=== PATIENT | female | born 1955 | race Hispanic/Latino ===

== ENCOUNTER 2017-05-03 19:59 | Inpatient (IN) | payer MEDICAID, OTHER ==
[~2017-05-03] VITALS: Ht 144.8 cm; Wt 57.0 kg
[2017-05-03] MEDS ORDERED: IPRATROPIUM/ALBUTEROL SULFATE 3 ML SOLUTION IH ONE ×3 (20:05→20:38)
[2017-05-03] MEDS ORDERED: METHYLPREDNISOLONE SOD SUCC 125MG/2ML VIAL ONE (20:35)
[2017-05-03 21:11] LABS: BASOPHILS % (AUTO) 1.3 % (0.0-5.0); EOSINOPHILS % (AUTO) 5.8 % (0.0-8.0); HEMATOCRIT 44.6 % (36-48); LYMPHOCYTES % (AUTO) 15.5 % (21.0-51.0); MEAN CORPUSCULAR HEMOGLOBIN 30.2 pg (27.0-33.0); MEAN CORPUSCULAR HGB CONC 33.5 g/dL (32.0-36.0); MEAN CORPUSCULAR VOLUME 90.2 fL (79-99); MONOCYTES % (AUTO) 5.6 % (3.0-13.0); NEUTROPHILS % (AUTO) 71.8 % (40.0-77.0); PLATELET COUNT (AUTO) 393 K/uL (130-400); RED BLOOD CELL COUNT(AUTO) 4.94 MIL/uL (4.00-5.50); RED CELL DISTRIBUTION WIDTH 12.4 % (11.0-15.5)
[2017-05-03 21:24] LABS: CARBON DIOXIDE 26 mmol/L (21-32); CHLORIDE 102 mmol/L (101-111); CREATININE 0.5 mg/dL (0.5-1.5); GLOMERULAR FILTR. RATE CALC 134 mL/min (>60); GLUCOSE,RANDOM 121 mg/dL (70-105); POTASSIUM 3.7 mmol/L (3.5-5.1); SODIUM SERUM 140 mmol/L (136-145); UREA NITROGEN, BLOOD 7 mg/dL (7-18)
[2017-05-03 21:26] LABS: INR 0.94 (0.85-1.15); PARTIAL THROMBOPLASTIN TIME 25.8 SEC (26.3-35.5); PROTHROMBIN TIME 9.9 SEC (9.6-11.6)
[2017-05-03 21:37] LABS: ALANINE AMINOTRANSFERASE 33 U/L (12-78); ALBUMIN 4.2 g/dL (3.5-5.0); ASPARTATE AMINOTRANSFERASE 14 U/L (10-37); BILIRUBIN,TOTAL 0.4 mg/dL (0.2-1.0); CREATINE KINASE MB < 0.5 ng/mL (0.5-3.6); CREATINE KINASE, TOTAL 64 U/L (21-232); MYOGLOBIN 32 ng/mL (10-92); TOTAL PROTEIN, SERUM 7.9 g/dL (6.0-8.3)
[2017-05-03] MEDS ORDERED: ACETAMINOPHEN EXTRA STRENGTH 500 MG TABLET ONE (22:51)
[2017-05-03] MEDS ORDERED: CEFTRIAXONE SODIUM 1 GM ONE (23:49)
[2017-05-03] MEDS ORDERED: AZITHROMYCIN 250 MG TABLET PO ONE (23:50)
[2017-05-04] MEDS ORDERED: ONDANSETRON HCL 4 MG/2 ML VIAL IV PRN (03:15)
[2017-05-04] MEDS ORDERED: CEFTRIAXONE 1GM/D5W 50ML 50 ML IV SCH (03:15)
[2017-05-04] MEDS: AZITHROMYCIN 500MG+NS 250ML 250 ML IV SCH (03:15)
[2017-05-04] MEDS ORDERED: ACETAMINOPHEN-CODEINE 300/30MG TAB PO PRN (03:15)
[2017-05-04] MEDS ORDERED: HYDRALAZINE HCL 20 MG/ML VIAL IV PRN (03:15)
[2017-05-04] MEDS ORDERED: IPRATROPIUM/ALBUTEROL SULFATE 3 ML SOLUTION IH ONE ×2 (07:11→10:13)
[2017-05-04] MEDS: IPRATROPIUM/ALBUTEROL SULFATE 3 ML SOLUTION IH SCH ×5 (07:17→21:18)
[2017-05-04] MEDS ORDERED: METHYLPREDNISOLONE SOD SUCC 125MG/2ML VIAL ONE (08:36)
[2017-05-04] MEDS: METHYLPREDNISOLONE SOD SUCC 125MG/2ML VIAL IV SCH ×2 (09:00→20:12)
[2017-05-04] MEDS: ENOXAPARIN SODIUM 30 MG/0.3 ML SQ SCH (09:00)
[2017-05-04] MEDS: PANTOPRAZOLE SODIUM 40 MG TABLET.DR PO SCH (09:00)
[2017-05-04] MEDS ORDERED: ENOXAPARIN SODIUM 30 MG/0.3 ML SQ ONE (12:05)
[2017-05-04] MEDS ORDERED: PANTOPRAZOLE SODIUM 40 MG TABLET.DR PO ONE (12:06)
[2017-05-04 12:41] VITALS: BP 122/64
[2017-05-04] MEDS ORDERED: IPRA4AER IH (13:07)
[2017-05-04] MEDS ORDERED: ADV500 IH (13:07)
[2017-05-04] MEDS ORDERED: MONT10TA24 PO (13:07)
[2017-05-04 16:23] VITALS: BP 109/67
[2017-05-04 19:00] VITALS: BP 148/68
[2017-05-04] MEDS: CEFTRIAXONE SODIUM 1 GM IVP SCH (20:11)
[2017-05-04 23:00] VITALS: BP 134/71
[2017-05-05] MEDS: IPRATROPIUM/ALBUTEROL SULFATE 3 ML SOLUTION IH SCH ×6 (01:02→22:26)
[2017-05-05 03:00] VITALS: BP 107/58
[2017-05-05] MEDS: AZITHROMYCIN 500MG+NS 250ML 250 ML IV SCH (03:22)
[2017-05-05 05:51] LABS: BASOPHILS % (AUTO) 0.4 % (0.0-5.0); MEAN CORPUSCULAR HEMOGLOBIN 30.5 pg (27.0-33.0); MEAN CORPUSCULAR HGB CONC 33.8 g/dL (32.0-36.0); MEAN CORPUSCULAR VOLUME 90.2 fL (79-99); MONOCYTES % (AUTO) 5.4 % (3.0-13.0); NEUTROPHILS % (AUTO) 89.2 % (40.0-77.0); PLATELET COUNT (AUTO) 396 K/uL (130-400); RED BLOOD CELL COUNT(AUTO) 4.43 MIL/uL (4.00-5.50); RED CELL DISTRIBUTION WIDTH 12.5 % (11.0-15.5); WHITE BLOOD COUNT (AUTO) 18.4 K/uL (4.8-10.8)
[2017-05-05 06:08] LABS: CREATININE 0.8 mg/dL (0.5-1.5); POTASSIUM 4.3 mmol/L (3.5-5.1)
[2017-05-05 07:04] VITALS: BP 109/63
[2017-05-05] MEDS: METHYLPREDNISOLONE SOD SUCC 125MG/2ML VIAL IV SCH (09:41)
[2017-05-05] MEDS: PANTOPRAZOLE SODIUM 40 MG TABLET.DR PO SCH (09:41)
[2017-05-05] MEDS: ENOXAPARIN SODIUM 30 MG/0.3 ML SQ SCH (09:42)
[2017-05-05 11:00] VITALS: BP 129/66
[2017-05-05] MEDS: ACETAMINOPHEN 325 MG TAB PO PRN (14:20)
[2017-05-05 16:00] VITALS: BP 113/70
[2017-05-05] MEDS ORDERED: WATER FOR INJECTION,STERILE 20 ML VIAL ONE (19:50)
[2017-05-05 19:52] VITALS: BP 124/63
[2017-05-05] MEDS: CEFTRIAXONE SODIUM 1 GM IVP SCH (19:55)
[2017-05-06 00:11] VITALS: BP 109/49
[2017-05-06] MEDS: AZITHROMYCIN 500MG+NS 250ML 250 ML IV SCH (03:28)
[2017-05-06 04:27] VITALS: BP 102/65
[2017-05-06] MEDS: IPRATROPIUM/ALBUTEROL SULFATE 3 ML SOLUTION IH SCH (07:24)
[2017-05-06 07:46] VITALS: BP 126/81
[2017-05-06] MEDS: PANTOPRAZOLE SODIUM 40 MG TABLET.DR PO SCH (08:06)
[2017-05-06] MEDS: ENOXAPARIN SODIUM 30 MG/0.3 ML SQ SCH (08:07)
[2017-05-06] MEDS: ACETAMINOPHEN 325 MG TAB PO PRN ×2 (08:14→10:16)
[2017-05-06] MEDS ORDERED: PREDNISONE 20 MG TABLET PO SCH (09:00)
[2017-05-06 11:18] LABS: HEMATOCRIT 41.1 % (36-48); MEAN CORPUSCULAR HGB CONC 34.4 g/dL (32.0-36.0); MEAN CORPUSCULAR VOLUME 90.2 fL (79-99); PLATELET COUNT (AUTO) 383 K/uL (130-400); RED BLOOD CELL COUNT(AUTO) 4.55 MIL/uL (4.00-5.50); RED CELL DISTRIBUTION WIDTH 12.4 % (11.0-15.5)
[2017-05-06] MEDS ORDERED: PRED20B PO (11:32)
[2017-05-06 11:49] VITALS: BP 140/77
[2017-05-06 11:50] LABS: BAND NEUTROPHILS % (MANUAL) 1 % (0-2); LYMPHOCYTES % (MANUAL) 8 % (22-44); MONOCYTES % (MANUAL) 6 % (2-9); SEGMENTED NEUTROPHILS % 85 % (40-70)
[2017-05-06 11:51] LABS: MAN.DIFF COMMENT-IMPRESSION MANUAL DIFFERENTIAL; PLATELET MORPHOLOGY COMMENT ADEQUATE
== END 2017-05-06 13:15 | disposition home or self-care (01) | DRG 190 ==
LOC: EDH 19:59 → EDHIP 20:00 → 4BH 05-04 12:11
PROVIDERS: ADMIT Family Medicine; ATTEND Family Medicine
DX: J44.0 Chronic obstructive pulmonary disease with (acute) lower respiratory infection (principal); J18.1 Lobar pneumonia, unspecified organism; J44.1 Chronic obstructive pulmonary disease with (acute) exacerbation; R00.0 Tachycardia, unspecified; D72.829 Elevated white blood cell count, unspecified; Z91.013 Allergy to seafood
CPT/HCPCS: 36415; 71045; 80048; 80053; 82550; 82553; 83874; 84484; 85025; 85610; 85730; 87804; 93005; 94640; 99291; A4218; J0456; J0696; J1650; J2930

== ENCOUNTER 2017-05-19 13:59 | Inpatient (IN) | payer MEDICAID ==
[~2017-05-19] VITALS: Ht 144.8 cm; Wt 57.1 kg
[~2017-05-19 13:59] MED LIST: ADV500 IH; INSULIN HUMULIN R 100 UNIT/ML 3ML SQ ONE; IPRA4AER IH; MONT10TA24 PO; PRED20B PO
[2017-05-19] MEDS ORDERED: METHYLPREDNISOLONE SOD SUCC 125MG/2ML VIAL ONE (14:37)
[2017-05-19] MEDS ORDERED: IPRATROPIUM/ALBUTEROL SULFATE 3 ML SOLUTION IH ONE ×2 (14:43→17:14)
[2017-05-19 14:50] LABS: EOSINOPHILS % (AUTO) 9.7 % (0.0-8.0); LYMPHOCYTES % (AUTO) 11.7 % (21.0-51.0); MEAN CORPUSCULAR HEMOGLOBIN 30.9 pg (27.0-33.0); MEAN CORPUSCULAR HGB CONC 34.6 g/dL (32.0-36.0); MEAN CORPUSCULAR VOLUME 89.4 fL (79-99); MONOCYTES % (AUTO) 5.9 % (3.0-13.0); NEUTROPHILS % (AUTO) 71.7 % (40.0-77.0); PLATELET COUNT (AUTO) 410 K/uL (130-400); RED BLOOD CELL COUNT(AUTO) 4.81 MIL/uL (4.00-5.50); RED CELL DISTRIBUTION WIDTH 12.6 % (11.0-15.5); WHITE BLOOD COUNT (AUTO) 13.8 K/uL (4.8-10.8)
[2017-05-19 14:58] LABS: CREATININE 0.6 mg/dL (0.5-1.5); POTASSIUM 3.5 mmol/L (3.5-5.1)
[2017-05-19 14:59] LABS: APPEARANCE,URINE Clear (CLEAR); BILIRUBIN,URINE Negative (NEGATIVE); COLOR,URINE Yellow (YELLOW); GLUCOSE, URINE (UA) Negative (NEGATIVE); KETONES,URINE Negative (NEGATIVE); LEUKOCYTE ESTERASE ,URINE Negative (NEGATIVE); NITRATE,URINE Negative (NEGATIVE); OCCULT BLOOD,URINE Negative (NEGATIVE); PROTEIN,URINE Negative (NEGATIVE); UROBILINOGEN,URINE 0.2 mg/dL (0.2-1.0)
[2017-05-19 15:02] LABS: ALBUMIN 3.9 g/dL (3.5-5.0); BILIRUBIN,DIRECT 0.1 mg/dL (0.0-0.3); BILIRUBIN,TOTAL 0.4 mg/dL (0.2-1.0); TOTAL PROTEIN, SERUM 7.3 g/dL (6.0-8.3)
[2017-05-19 15:29] LABS: B-TYPE NATRIURETIC PEPTIDE 13 pg/mL (0-100)
[2017-05-19] MEDS ORDERED: ALBUTEROL SULFATE 0.083% 2.5 MG/3 ML INH IH ONE (16:01)
[2017-05-19] MEDS ORDERED: CEFTRIAXONE SODIUM 1 GM ONE (16:24)
[2017-05-19] MEDS: MEROPENEM 1 GM VIAL IVP SCH (18:00)
[2017-05-19] MEDS ORDERED: MEROPENEM 1 GM VIAL ONE (18:06)
[2017-05-19 19:00] VITALS: BP 129/75
[2017-05-19] MEDS: IPRATROPIUM/ALBUTEROL SULFATE 3 ML SOLUTION IH SCH ×2 (20:19→23:50)
[2017-05-19 23:03] VITALS: BP 135/75
[2017-05-19] MEDS ORDERED: POTASSIUM CHLORIDE 20 MEQ ERTAB PO ONE (23:28)
[2017-05-19] MEDS ORDERED: INSULIN HUMULIN R 100 UNIT/ML 3ML ONE (23:29)
[2017-05-19] MEDS ORDERED: POTASSIUM CHLORIDE 10% ELIXIR 20 MEQ/15 ML UDCUP PO PRN (23:30)
[2017-05-19] MEDS ORDERED: LIDOCAINE HCL-MPF 1% 2ML VIAL IVP PRN (23:30)
[2017-05-19] MEDS ORDERED: GLUCAGON 1MG KIT 1 MG ML IM PRN (23:30)
[2017-05-19] MEDS ORDERED: POTASSIUM CHLORIDE 20 MEQ ERTAB PO PRN (23:30)
[2017-05-19] MEDS ORDERED: POTASSIUM CHLORIDE 20MEQ/100ML 100 ML IV PRN (23:30)
[2017-05-19] MEDS ORDERED: DEXTROSE 50%-WATER 50 ML DISP.SYRIN IV PRN (23:30)
[2017-05-19] MEDS: METHYLPREDNISOLONE SOD SUCC 125MG/2ML VIAL IVP SCH (23:33)
[2017-05-20] MEDS ORDERED: GUAIFENESIN-DM 200/20 MG 10 ML PO PRN (01:45)
[2017-05-20] MEDS ORDERED: ACETAMINOPHEN 325 MG TAB PO PRN (01:45)
[2017-05-20] MEDS ORDERED: ONDANSETRON HCL 4 MG/2 ML VIAL IV PRN (01:45)
[2017-05-20] MEDS ORDERED: HYDRALAZINE HCL 20 MG/ML VIAL IV PRN (01:45)
[2017-05-20] MEDS: MEROPENEM 1 GM VIAL IVP SCH ×3 (01:59→18:48)
[2017-05-20] MEDS: IPRATROPIUM/ALBUTEROL SULFATE 3 ML SOLUTION IH SCH ×6 (02:58→22:17)
[2017-05-20 03:10] VITALS: BP 114/77
[2017-05-20] MEDS ORDERED: AUD IH (03:37)
[2017-05-20] MEDS: INSULIN HUMULIN R 100 UNIT/ML 3ML SQ SCH ×3 (05:55→15:47)
[2017-05-20] MEDS: METHYLPREDNISOLONE SOD SUCC 125MG/2ML VIAL IVP SCH ×2 (05:56→16:20)
[2017-05-20] MEDS ORDERED: PNEUMOCOCCAL VACCINE POLYVALENT 0.5 ML/VIAL [PPV] IM SCH (08:15)
[2017-05-20 09:12] VITALS: BP 138/82
[2017-05-20 10:16] LABS: BASOPHILS % (AUTO) 0.3 % (0.0-5.0); HEMATOCRIT 42.9 % (36-48); MEAN CORPUSCULAR HEMOGLOBIN 30.5 pg (27.0-33.0); MEAN CORPUSCULAR HGB CONC 34.1 g/dL (32.0-36.0); MEAN CORPUSCULAR VOLUME 89.3 fL (79-99); MONOCYTES % (AUTO) 1.9 % (3.0-13.0); PLATELET COUNT (AUTO) 425 K/uL (130-400); RED CELL DISTRIBUTION WIDTH 12.5 % (11.0-15.5); WHITE BLOOD COUNT (AUTO) 15.4 K/uL (4.8-10.8)
[2017-05-20 10:26] LABS: POTASSIUM 4.1 mmol/L (3.5-5.1)
[2017-05-20] MEDS: FAMOTIDINE 20MG TAB 20 MG TAB PO SCH (10:46)
[2017-05-20] MEDS: BENZONATATE 100 MG CAPSULE PO SCH ×2 (10:47→16:21)
[2017-05-20] MEDS: ENOXAPARIN SODIUM 30 MG/0.3 ML SQ SCH (10:48)
[2017-05-20 11:13] LABS: LYMPHOCYTES % (AUTO) 4.6 % (21.0-51.0); NEUTROPHILS % (AUTO) 93.2 % (40.0-77.0)
[2017-05-20 12:12] VITALS: BP 132/80
[2017-05-20 15:55] VITALS: BP 114/68
[2017-05-20] MEDS ORDERED: SODIUM CHLORIDE 3% FOR INHALATION 4 ML/AMP VIAL.NEB IH ONE (19:08)
[2017-05-20 19:50] VITALS: BP 123/70
[2017-05-20 23:28] VITALS: BP 105/64
[2017-05-21] MEDS: IPRATROPIUM/ALBUTEROL SULFATE 3 ML SOLUTION IH SCH ×6 (01:48→22:24)
[2017-05-21] MEDS: FAMOTIDINE 20MG TAB 20 MG TAB PO SCH ×3 (01:58→20:28)
[2017-05-21] MEDS: BENZONATATE 100 MG CAPSULE PO SCH ×4 (01:59→20:28)
[2017-05-21] MEDS: METHYLPREDNISOLONE SOD SUCC 125MG/2ML VIAL IVP SCH ×2 (02:00→06:54)
[2017-05-21] MEDS: INSULIN HUMULIN R 100 UNIT/ML 3ML SQ SCH ×5 (02:01→20:28)
[2017-05-21] MEDS: MEROPENEM 1 GM VIAL IVP SCH ×3 (02:02→18:01)
[2017-05-21] MEDS ORDERED: SODIUM CHLORIDE 3% FOR INHALATION 4 ML/AMP VIAL.NEB IH ONE (02:02)
[2017-05-21 04:00] VITALS: BP 104/71
[2017-05-21 06:14] LABS: BASOPHILS % (AUTO) 0.1 % (0.0-5.0); EOSINOPHILS % (AUTO) 0.2 % (0.0-8.0); HEMATOCRIT 40.7 % (36-48); LYMPHOCYTES % (AUTO) 4.3 % (21.0-51.0); MEAN CORPUSCULAR HEMOGLOBIN 30.8 pg (27.0-33.0); MEAN CORPUSCULAR HGB CONC 34.7 g/dL (32.0-36.0); MEAN CORPUSCULAR VOLUME 88.8 fL (79-99); MONOCYTES % (AUTO) 3.4 % (3.0-13.0); PLATELET COUNT (AUTO) 380 K/uL (130-400); RED BLOOD CELL COUNT(AUTO) 4.59 MIL/uL (4.00-5.50); RED CELL DISTRIBUTION WIDTH 12.4 % (11.0-15.5); WHITE BLOOD COUNT (AUTO) 14.9 K/uL (4.8-10.8)
[2017-05-21 06:26] LABS: CREATININE 0.7 mg/dL (0.5-1.5); POTASSIUM 4.2 mmol/L (3.5-5.1)
[2017-05-21 06:39] LABS: HEMOGLOBIN A1C 5.6 % (4.0-6.0)
[2017-05-21 07:40] VITALS: BP 114/69
[2017-05-21 08:01] LABS: ABG BASE EXCESS 0.7 mmol/L (-2.0-3.0); ABG HCO3 24.1 mmol/L (21.0-28.0); ABG OXYGEN SATURATION 93.8 % (95.0-99.0); ABG PCO2 35 mmHg (32-45)
[2017-05-21] MEDS: ENOXAPARIN SODIUM 30 MG/0.3 ML SQ SCH (10:58)
[2017-05-21 11:30] VITALS: BP 112/71
[2017-05-21 16:24] VITALS: BP 109/70
[2017-05-21] MEDS: METHYLPREDNISOLONE SOD SUCC 40MG/ML 1ML IVP SCH (18:01)
[2017-05-21 19:40] VITALS: BP 127/75
[2017-05-21 23:30] VITALS: BP 112/68
[2017-05-22] MEDS: METHYLPREDNISOLONE SOD SUCC 40MG/ML 1ML IVP SCH ×2 (00:56→08:59)
[2017-05-22] MEDS: IPRATROPIUM/ALBUTEROL SULFATE 3 ML SOLUTION IH SCH ×5 (01:59→18:47)
[2017-05-22] MEDS: MEROPENEM 1 GM VIAL IVP SCH ×2 (03:07→12:02)
[2017-05-22 03:45] VITALS: BP 131/71
[2017-05-22] MEDS: INSULIN HUMULIN R 100 UNIT/ML 3ML SQ SCH ×2 (06:12→11:30)
[2017-05-22 08:00] VITALS: BP 118/47
[2017-05-22] MEDS: BENZONATATE 100 MG CAPSULE PO SCH (08:59)
[2017-05-22] MEDS: FAMOTIDINE 20MG TAB 20 MG TAB PO SCH (08:59)
[2017-05-22] MEDS: ENOXAPARIN SODIUM 30 MG/0.3 ML SQ SCH (09:00)
[2017-05-22 11:00] VITALS: BP 111/57
[2017-05-22] MEDS ORDERED: AMOX-429 PO (14:51)
[2017-05-22] MEDS ORDERED: FAMO20TA8 PO (14:51)
[2017-05-22] MEDS ORDERED: GUAI5SYR4 PO (14:51)
[2017-05-22 16:00] VITALS: BP 123/68
== END 2017-05-22 19:45 | disposition home or self-care (01) | DRG 720 ==
LOC: EDH 13:59 → EDHIP 14:00 → 3AH 18:57
PROVIDERS: ADMIT Family Medicine; ATTEND Family Medicine
PROC: 3E0234Z Introduction of Serum, Toxoid and Vaccine into Muscle, Percutaneous Approach (ICD-10-PCS; principal; 2017-05-20)
DX: A41.9 Sepsis, unspecified organism (principal); J18.1 Lobar pneumonia, unspecified organism; J44.0 Chronic obstructive pulmonary disease with (acute) lower respiratory infection; J44.1 Chronic obstructive pulmonary disease with (acute) exacerbation; R09.02 Hypoxemia; R73.9 Hyperglycemia, unspecified; T38.0X5A Adverse effect of glucocorticoids and synthetic analogues, initial encounter; R00.0 Tachycardia, unspecified; Z23 Encounter for immunization
CPT/HCPCS: 36415; 36600; 71046; 71250; 80048; 80076; 81003; 82803; 82948; 83036; 83880; 85025; 87071; 87205; 87633; 87804; 90732; 93005; 94640; 94664; 99291; A4218; G0009; J0696; J1650; J1815; J2185; J2920; J2930